=== PATIENT | male | born 1990 ===

== ENCOUNTER 2017-09-26 12:50 | Emergency (ER) | payer OTHER ==
[2017-09-26 13:04] VITALS: BP 133/90; PULSE 82; RESP 18; TEMP 98.9; O2SAT 98
--- NOTE | 2017-09-26 13:10 | C.PDOC ---
History Of Present Illness 27 y/o male presents to the ER complaining of right earlobe mass which has been present for 2 years and has become gradually worse over the past few days. Denies having trauma, bleeding, and other symptoms at this time. Time Seen by Provider: 09/26/17 12:59 History Per: Patient History/Exam Limitations: None Onset/Duration Of Symptoms: Days Current Symptoms Are (Timing): Still Present Severity: Moderate Past Medical History Reviewed: Historical Data, Nursing Documentation, Vital Signs Vital Signs: Last Vital Signs Temp 98.9 F 09/26/17 13:03 Pulse 82 09/26/17 13:03 Resp 18 09/26/17 13:03 BP 133/90 09/26/17 13:03 Pulse Ox 98 09/26/17 13:23 - Medical History PMH: No Chronic Diseases Surgical History: No Surg Hx Family History: States: No Known Family Hx - Social History Hx Alcohol Use: No Hx Substance Use: No - Immunization History Hx Tetanus Toxoid Vaccination: No Hx Influenza Vaccination: No Hx Pneumococcal Vaccination: No Review Of Systems Except As Marked, All Systems Reviewed And Found Negative. ENT: Positive for: Other (right earlobe mass) Physical Exam - Physical Exam Appears: Non-toxic, No Acute Distress Skin: Normal Color, Warm, Dry Head: Atraumatic, Normacephalic Eye(s): bilateral: Normal Inspection Ear(s): Left: Normal, Right: Other (keloid on front and back of earlobe, no erythema, no discharge) Respiratory: Other (NARD) Neurological/Psych: Oriented x3, Normal Speech ED Course And Treatment O2 Sat by Pulse Oximetry: 98 (RA) Pulse Ox Interpretation: Normal Medical Decision Making Medical Decision Making: Patient has been advised to follow up with clinic for surgical removal of right earlobe keloid. Disposition Counseled Patient/Family Regarding: Diagnosis, Need For Followup - Disposition Referrals: [facility] [Outside] [facility] [Outside] Disposition: HOME/ ROUTINE Disposition Time: 13:10 Condition: GOOD Instructions: Keloids Forms: [facility] (Mongolian) Print Language: SLOVAK - Clinical Impression Clinical Impression: Keloid - Scribe Statement The provider has reviewed the documentation as recorded by the Odilia Medina Provider Attestation: All medical record entries made by the Esmeibpedro pablo were at my direction and personally dictated by me. I have reviewed the chart and agree that the record accurately reflects my personal performance of the history, physical exam, medical decision making, and the department course for this patient. I have also personally directed, reviewed, and agree with the discharge instructions and disposition.
== END 2017-09-26 13:20 | disposition home or self-care (01) ==
LOC: C.ER 12:50
DX: L91.0 Hypertrophic scar (principal)